=== PATIENT | female | born 1980 | race Hispanic/Latino ===

== ENCOUNTER 2017-02-21 12:48 | Emergency (ER) | payer BC, SELFPAY ==
[2017-02-21 13:13] LABS: #Basophils 0.1 thou/uL (0.0-0.2); #Eosinphils 0.2 thou/uL (0.0-0.7); #Lymphocytes 1.9 thou/uL (1.20-3.40); #Monocytes 0.4 thou/uL (0.11-0.59); #Neutrophils 2.5 thou/uL (1.40-6.50); %Basophils 1.1 % (0.0-1.0); %Eosinophils 4.9 % (0.0-10.0); %Monocytes 7.1 % (0.0-10.0); %Neutrophils 48.9 % (42.0-75.0); Hemoglobin 11.4 g/dL (12.0-16.0); Mean Corpuscular HGB CONC 33.2 g/dL (32.0-36.0); Mean Corpuscular Hemoglobin 30.2 pg (27.0-31.0); Mean Corpuscular Volume 91.2 fl (81.0-99.0); Mean Platelet Volume 9.8 fL (7.4-10.4); Platelet Count 243 thou/uL (130-400); RBC Distribution Width 11.9 % (11.5-14.5); Red Blood Cell (RBC) Count 3.76 mill/uL (4.20-5.40); White Blood Cell (WBC) Count 5.1 thou/uL (4.8-10.8)
[2017-02-21 13:25] LABS: ALT (SGPT) 10 U/L (8-55); AST (SGOT) 15 U/L (5-34); Albumin 4.4 g/dL (3.5-5.0); Alkaline Phosphatase 47 U/L (40-150); Anion Gap 13 mmol/L (10-20); BUN (Urea Nitrogen) 17 mg/dL (7.0-18.7); Bilirubin, Total 0.4 mg/dL (0.2-1.2); Calc. Creatinine Clearance 0 mL/min (70-130); Carbon Dioxide 25 mmol/L (22-29); Chloride 108 mmol/L (98-107); Estimated GFR-MDRD 86; Globulin 3.6 g/dL (2.4-3.5); Glucose 102 mg/dL (70-105); Potassium 3.9 mmol/L (3.5-5.1); Sodium 142 mmol/L (136-145)
[2017-02-21 13:27] LABS: CKMB 0.7 ng/mL (0-6.6); Troponin I Less than 0.010 ng/mL (< 0.028)
[2017-02-21 15:19] LABS: CKMB 0.6 ng/mL (0-6.6); Troponin I Less than 0.010 ng/mL (< 0.028)
--- NOTE | 2017-02-21 23:56 | RAD ---
PORTABLE CHEST 02/21/17 An AP portable film at 1258 shows a normal sized heart and clear. No infiltrate or effusion was seen . The lungs are fully inflated. There is no vascular congestion or edema. The trachea is midline. IMPRESSION: No acute findings. POS: HOME
== END 2017-02-21 15:38 | disposition home or self-care (01) ==
LOC: BURERS 12:48
DX: R07.2 Precordial pain (principal)
CPT/HCPCS: 71010; 80053; 82553; 84484; 85025; 85379; 93005

== ENCOUNTER 2023-09-12 00:03 | Emergency (ER) | payer OTHER ==
[2023-09-12] MEDS ORDERED: Sulfameth/Trimethoprim DS 800-160mg TAB ONE (00:20)
== END 2023-09-12 00:25 | disposition home or self-care (01) ==
LOC: BURERS 00:03
DX: L60.0 Ingrowing nail (principal)
CPT/HCPCS: 99283